=== PATIENT | male | born 1975 | race Caucasian/White ===

== ENCOUNTER 2017-03-04 22:34 | Emergency (ER) | payer MEDICAID ==
[~2017-03-04] VITALS: Ht 165.1 cm; Wt 82.0 kg
[2017-03-05] MEDS ORDERED: KETOROLAC 30MG/ML VIAL IM ONE
[2017-03-05 00:07] LABS: CLARITY URINE CLEAR (CLEAR); COLOR URINE DARK YELLOW (YELLOW); GLUCOSE URINE NEGATIVE (NEGATIVE); KETONES URINE NEGATIVE (NEGATIVE); LEUKOCYTE ESTERASE URINE NEGATIVE (NEGATIVE); NITRITE URINE NEGATIVE (NEGATIVE); OCCULT BLOOD URINE NEGATIVE (NEGATIVE); PROTEIN URINE NEGATIVE (NEGATIVE); SPECIFIC GRAVITY URINE 1.038 (1.005-1.030)
[2017-03-05 02:21] VITALS: BP 127/89
== END 2017-03-05 02:23 | disposition home or self-care (01) ==
LOC: ER 22:34
DX: N45.1 Epididymitis (principal); N43.3 Hydrocele, unspecified; I10 Essential (primary) hypertension; F17.210 Nicotine dependence, cigarettes, uncomplicated; Z87.828 Personal history of other (healed) physical injury and trauma
CPT/HCPCS: 76870; 81003; 93976; 96372; 99285; J1885

== ENCOUNTER 2017-05-21 16:53 | Emergency (ER) | payer MEDICAID ==
[~2017-05-21] VITALS: Ht 172.7 cm; Wt 77.0 kg
[2017-05-21 17:45] LABS: BASOPHILS % 0.6 % (0.0-2.0); EOSINOPHILS % 0.4 % (0.0-5.0); HEMATOCRIT. 41.1 % (42.0-52.0); LYMPHOCYTES % 28.6 % (20.0-50.0); MEAN CORPUSCULAR HEMOGLOBIN 30.1 pg (28.0-32.0); MEAN CORPUSCULAR VOLUME 88.6 fL (80.0-94.0); MONOCYTES % 6.3 % (2.0-8.0); NEUTROPHILS % 64.1 % (40.0-76.0); PLATELET 210 x1000/uL (130-400); RED BLOOD CELL COUNT 4.64 mill/uL (4.7-6.1); RED CELL DISTRIBUTION WIDTH 13.8 % (11.6-14.6)
[2017-05-21 17:55] LABS: CARBON DIOXIDE 24 mEq/L (21-32); CHLORIDE 109 mEq/L (98-107); ETHANOL BLOOD 296 mg/dL
[2017-05-21 18:10] VITALS: BP 129/78
== END 2017-05-21 18:12 | disposition home or self-care (01) ==
LOC: ER 16:53
DX: F10.129 Alcohol abuse with intoxication, unspecified (principal); I10 Essential (primary) hypertension
CPT/HCPCS: 36415; 80053; 85025; 99284; G0482; Z7610

== ENCOUNTER 2017-11-08 15:53 | Emergency (ER) | payer MEDICAID ==
[~2017-11-08] VITALS: Ht 165.1 cm; Wt 87.0 kg
[2017-11-08 16:52] VITALS: BP 118/82
[2017-11-08] MEDS ORDERED: IBUPROFEN 600MG TABLET PO ONE (17:00)
== END 2017-11-08 19:30 | disposition left against medical advice (07) ==
LOC: ER 18:30
DX: M25.432 Effusion, left wrist (principal)
CPT/HCPCS: 99281; Z7610

== ENCOUNTER 2018-01-07 08:00 | Emergency (ER) | payer MEDICAID ==
[~2018-01-07] VITALS: Ht 167.6 cm; Wt 98.0 kg
[2018-01-07 08:12] VITALS: BP 116/56
== END 2018-01-07 14:54 | disposition left against medical advice (07) ==
LOC: ER 09:00
DX: M79.604 Pain in right leg (principal); Z53.21 Procedure and treatment not carried out due to patient leaving prior to being seen by health care provider